=== PATIENT | female | born 1985 | race Caucasian/White ===

== ENCOUNTER 2024-04-13 14:03 | Emergency (ER) | payer OTHER ==
[~2024-04-13] VITALS: Ht 162.6 cm; Wt 59.0 kg
[2024-04-13 14:07] VITALS: BP_SYST 108; RESP 16; TEMP 97.4
[2024-04-13] MEDS: ASPIRIN 81 MG TAB.CHEW PO ONE ×2 (15:32)
[2024-04-13 16:05] LABS: BASOPHILS % (AUTO) 0.5 % (0.0-2.0); EOSINOPHILS % (AUTO) 0.5 % (0.0-4.0); HEMATOCRIT 39.4 % (36-48); HEMOGLOBIN 13.6 g/dL (12.0-16.0); LYMPHOCYTES # (AUTO) 1.6 K/uL (1.0-5.5); MEAN CORPUSCULAR HEMOGLOBIN 31 pg (27-31); MEAN CORPUSCULAR HGB CONC 35 % (32-36); MEAN CORPUSCULAR VOLUME 89 fL (79.0-98.0); MONOCYTES # (AUTO) 0.4 K/uL (0.0-1.0); MONOCYTES % (AUTO) 5.8 % (1.7-9.3); NEUTROPHILS # (AUTO) 4.3 K/uL (1.8-7.7); NEUTROPHILS % (AUTO) 68.2 % (40.0-70.0); PLATELET COUNT (AUTO) 200 K/uL (130-430); RED BLOOD CELL COUNT(AUTO) 4.41 MIL/uL (4.2-6.2); RED CELL DISTRIBUTION WIDTH 13.1 % (9.0-15.0); WHITE BLOOD COUNT (AUTO) 6.2 K/uL (4.8-10.8)
[2024-04-13 16:14] LABS: ANION GAP 6 (5-15); CALCIUM 8.8 mg/dL (8.4-11.0); CARBON DIOXIDE 26 mmol/L (23-29); CHLORIDE 105 mmol/L (98-107); CREATININE 0.65 mg/dL (0.55-1.30); GFR AFRICAN AMERICAN 131 mL/min (>90); GFR NON AFRICAN-AMERICAN 108 mL/min (>90); GLUCOSE 92 mg/dL (74-106); POTASSIUM 3.7 mmol/L (3.5-5.1); SODIUM SERUM 137 mmol/L (136-145); UREA NITROGEN, BLOOD 12 mg/dL (8-21)
[2024-04-13 17:52] VITALS: BP_SYST 108; PULSE 68; RESP 16; TEMP 97.4
== END 2024-04-13 17:36 | disposition home or self-care (01) ==
LOC: SED 14:03
DX: R59.1 Generalized enlarged lymph nodes (principal); R51.9 Headache, unspecified; R06.00 Dyspnea, unspecified; J02.9 Acute pharyngitis, unspecified; R11.0 Nausea
CPT/HCPCS: 36415; 70450-TC; 71045; 80048; 83880; 84484; 85025; 93005; 99285